=== PATIENT | male | born 2000 | race Caucasian/White ===

== ENCOUNTER 2023-08-11 02:01 | Emergency (ER) | payer SELFPAY ==
[2023-08-11] MEDS ORDERED: Lidocaine 1% (PF) 30 ML VIAL ONE (02:08)
== END 2023-08-11 03:49 | disposition home or self-care (01) ==
LOC: ERS 02:01
DX: T16.2XXA Foreign body in left ear, initial encounter (principal); X58.XXXA Exposure to other specified factors, initial encounter
CPT/HCPCS: 99282; J2001